=== PATIENT | male | born 1960 | race Two or more races ===

== ENCOUNTER 2017-09-01 04:36 | Emergency (ER) | payer MEDICAID ==
[~2017-09-01] VITALS: Ht 175.3 cm; Wt 57.9 kg
[~2017-09-01 04:36] MED LIST: HYDR-569 PO; NABU500T2 PO
[2017-09-01 04:47] VITALS: BP 138/85
[2017-09-01] MEDS ORDERED: ibuprofen tablet 400 MG TABLET PO ONE (05:00)
[2017-09-01] MEDS ORDERED: HYDROcodone/acetaminophen 10/325mg tab PO ONE (05:00)
[2017-09-01] MEDS ORDERED: IBUP-1984 PO (05:05)
[2017-09-01] MEDS ORDERED: HYDR-569 PO (05:05)
== END 2017-09-01 05:21 | disposition home or self-care (01) ==
LOC: ER 04:37
DX: M62.830 Muscle spasm of back (principal); G89.29 Other chronic pain; F12.10 Cannabis abuse, uncomplicated; F15.10 Other stimulant abuse, uncomplicated; Z59.0 Homelessness; Z79.899 Other long term (current) drug therapy
CPT/HCPCS: 99283

== ENCOUNTER 2018-04-25 12:12 | Inpatient (IN) | payer MEDICAID ==
[~2018-04-25] VITALS: Ht 177.8 cm; Wt 70.5 kg
[~2018-04-25 12:12] MED LIST changes: +HYDR-4383 PO; -HYDR-569 PO
[2018-04-25 13:12] LABS: BASOPHILS # (AUTO) 0.1 X10'3 (0-0.2); BASOPHILS % (AUTO) 0.4 % (0-1); EOSINOPHILS % (AUTO) 0.2 % (0-6); HEMATOCRIT 38.3 % (42.0-52.0); HEMOGLOBIN 12.9 g/dl (14.0-17.9); LYMPHOCYTES # (AUTO) 1.1 X10'3 (1.1-4.8); MEAN CORPUSCULAR HGB CONC 33.5 % (33.0-36.5); MEAN CORPUSCULAR VOLUME 89.5 FL (78-98); MEAN PLATELET VOLUME 7.5 FL (7.4-10.4); MONOCYTES # (AUTO) 0.9 X10'3 (0-0.9); MONOCYTES % (AUTO) 6.6 % (2-12); NEUTROPHILS # (AUTO) 12.1 X10'3 (1.8-7.7); NEUTROPHILS % (AUTO) 84.8 % (42-75); PLATELET COUNT 254 X10'3 (140-440); RED BLOOD COUNT 4.28 X10'6 (4.70-6.10); RED CELL DISTRIBUTION WIDTH 12.7 % (11.5-14.5); WHITE BLOOD COUNT 14.3 X10'3 (4.5-11.0)
[2018-04-25 13:31] LABS: ALANINE AMINOTRANSFERASE 19 U/L (12-78); ALBUMIN 3.4 G/DL (3.4-5.0); ALBUMIN/GLOBULIN RATIO 0.8 (1.1-1.5); ALKALINE PHOSPHATASE 81 IU/L (46-116); ANION GAP 7 (8-16); ASPARTATE AMINO TRANSFERASE 13 U/L (10-37); BILIRUBIN,TOTAL 0.7 MG/DL (0.1-1.0); BLOOD UREA NITROGEN 19 MG/DL (7-18); CHLORIDE 100 MMOL/L (99-107); CREATININE 1.19 MG/DL (0.60-1.10); GLUCOSE 132 MG/DL (70-104); MAGNESIUM 1.9 MG/DL (1.5-2.4); POTASSIUM 4.1 MMOL/L (3.5-5.1); SODIUM 136 MMOL/L (135-145); TOTAL CARBON DIOXIDE 28.6 MMOL/L (24-32); TOTAL PROTEIN 7.5 G/DL (6.4-8.2); eGFR 63 ML/MIN
[2018-04-25] MEDS ORDERED: piperacillin/tazo 3.375gm/50ml 50 ML IV ONE (13:45)
[2018-04-25] MEDS ORDERED: iohexol 300mg/ml 100ml inj. ONE (13:53)
[2018-04-25] MEDS ORDERED: LIDOcaine 1% 30ml preserv. free vial IJ ONE (15:35)
[2018-04-25] MEDS ORDERED: morphine 2 MG/ML inj. syringe IV PRN (17:20)
[2018-04-25] MEDS ORDERED: potassium Cl 20 mEq SR tablet PO PRN ×2 (17:20)
[2018-04-25] MEDS ORDERED: mag hydrox/Alum hydrox/simeth 30ml oral suspension PO PRN (17:20)
[2018-04-25] MEDS ORDERED: ondansetron/PF 4mg/2ml inj IV PRN (17:20)
[2018-04-25] MEDS ORDERED: magnesium hydroxide 30ml (MOM) UD suspension PO PRN (17:20)
[2018-04-25] MEDS ORDERED: acetaminophen 325mg tablet PO PRN (17:20)
[2018-04-25] MEDS ORDERED: magnesium 4gm in 100ml NS 100 ML IV PRN (17:20)
[2018-04-25] MEDS ORDERED: potassium Cl 40MEQ/NS 500ml 500 ML IV PRN ×2 (17:20)
[2018-04-25] MEDS ORDERED: ipratropium/albuterol 3ml nebule NEB PRN (17:20)
[2018-04-25] MEDS: morphine 2 MG/ML inj. syringe IV PRN (17:48)
[2018-04-25] MEDS: normal saline 1000ml 1,000 ML IV SCH (17:49)
[2018-04-25 20:30] VITALS: BP 117/59
[2018-04-25] MEDS: cefepime 2g/NS 100ml ADVANTAGE 100 ML IV SCH (20:31)
[2018-04-25 23:30] VITALS: BP 112/70
[2018-04-26] MEDS: normal saline 1000ml 1,000 ML IV SCH ×3 (03:18→23:02)
[2018-04-26] MEDS ORDERED: vancomycin/NS 1 GM ADD-VANTAGE 250 ML IV ONE (05:00)
[2018-04-26 05:17] LABS: BASOPHILS % (AUTO) 0.2 % (0-1); EOSINOPHILS # (AUTO) 0.3 X10'3 (0-0.9); EOSINOPHILS % (AUTO) 2.4 % (0-6); HEMATOCRIT 35.4 % (42.0-52.0); HEMOGLOBIN 12.1 g/dl (14.0-17.9); LYMPHOCYTES % (AUTO) 8.1 % (21-51); MEAN CORPUSCULAR HEMOGLOBIN 30.2 PG (27.0-31.0); MEAN CORPUSCULAR VOLUME 88.8 FL (78-98); MEAN PLATELET VOLUME 8.1 FL (7.4-10.4); MONOCYTES # (AUTO) 1.2 X10'3 (0-0.9); MONOCYTES % (AUTO) 9.1 % (2-12); NEUTROPHILS # (AUTO) 10.2 X10'3 (1.8-7.7); NEUTROPHILS % (AUTO) 80.2 % (42-75); PLATELET COUNT 244 X10'3 (140-440); RED BLOOD COUNT 3.99 X10'6 (4.70-6.10); RED CELL DISTRIBUTION WIDTH 12.4 % (11.5-14.5); WHITE BLOOD COUNT 12.7 X10'3 (4.5-11.0)
[2018-04-26 05:28] LABS: ALANINE AMINOTRANSFERASE 16 U/L (12-78); ALBUMIN 2.8 G/DL (3.4-5.0); ALBUMIN/GLOBULIN RATIO 0.7 (1.1-1.5); ALKALINE PHOSPHATASE 72 IU/L (46-116); ANION GAP 7 (8-16); ASPARTATE AMINO TRANSFERASE 13 U/L (10-37); BILIRUBIN,TOTAL 0.6 MG/DL (0.1-1.0); BLOOD UREA NITROGEN 17 MG/DL (7-18); BUN/CREATININE RATIO 16.2 (5.4-32.0); CALCIUM 8.7 MG/DL (8.5-10.1); CHLORIDE 100 MMOL/L (99-107); CREATININE 1.05 MG/DL (0.60-1.10); GLUCOSE 104 MG/DL (70-104); MAGNESIUM 1.7 MG/DL (1.5-2.4); POTASSIUM 4.1 MMOL/L (3.5-5.1); SODIUM 135 MMOL/L (135-145); TOTAL CARBON DIOXIDE 27.7 MMOL/L (24-32); TOTAL PROTEIN 6.7 G/DL (6.4-8.2); eGFR 73 ML/MIN
[2018-04-26 07:04] VITALS: BP 108/65
[2018-04-26] MEDS: enoxaparin 40mg/0.4ml syringe SQ SCH (07:25)
[2018-04-26] MEDS: vancomycin/NS 1 GM ADD-VANTAGE 250 ML IV SCH ×2 (07:25→20:32)
[2018-04-26] MEDS: morphine 2 MG/ML inj. syringe IV PRN ×4 (07:36→23:03)
[2018-04-26] MEDS: K and/or MAG REPLACEMENT MC SCH (08:00)
[2018-04-26] MEDS ORDERED: pneumococcal 23-VAL P-sac vacc 25 mcg/0.5ml vial IMVAC ONE (10:00)
[2018-04-26] MEDS ORDERED: FLU VACC QUAD 2018(5 YR UP)/PF 60 MCG/0.5 ML SYRINGE IM ONE (10:00)
[2018-04-26] MEDS: cefepime 2g/NS 100ml ADVANTAGE 100 ML IV SCH ×2 (11:00→19:49)
[2018-04-26 11:23] VITALS: BP 114/71
[2018-04-26 17:35] LABS: URINE AMPHETAMINE SCREEN POSITIVE (Neg); URINE BARBITUATE SCREEN NEGATIVE (Neg); URINE BENZODIAZEPINES SCREEN NEGATIVE (Neg); URINE CANNABINOID SCREEN POSITIVE (Neg); URINE COCAINE SCREEN NEGATIVE (Neg); URINE METHADONE SCREEN NEGATIVE (Neg); URINE OPIATE SCREEN POSITIVE (Neg); URINE PHENCYCLIDINE SCREEN NEGATIVE (Neg)
[2018-04-26] MEDS: lactobacillus rhamnosus 10,000 MMU CELLS/CAPSULE PO SCH (19:49)
[2018-04-26 20:00] VITALS: BP 119/68
[2018-04-27] VITALS: BP 109/57
[2018-04-27 05:48] LABS: BASOPHILS % (AUTO) 0.4 % (0-1); EOSINOPHILS % (AUTO) 1.8 % (0-6); HEMATOCRIT 33.4 % (42.0-52.0); HEMOGLOBIN 11.9 g/dl (14.0-17.9); LYMPHOCYTES % (AUTO) 13.9 % (21-51); MEAN CORPUSCULAR HEMOGLOBIN 31.5 PG (27.0-31.0); MEAN CORPUSCULAR HGB CONC 35.7 % (33.0-36.5); MEAN CORPUSCULAR VOLUME 88.2 FL (78-98); MEAN PLATELET VOLUME 8.2 FL (7.4-10.4); MONOCYTES % (AUTO) 9.5 % (2-12); NEUTROPHILS # (AUTO) 6.7 X10'3 (1.8-7.7); NEUTROPHILS % (AUTO) 74.4 % (42-75); PLATELET COUNT 242 X10'3 (140-440); RED BLOOD COUNT 3.79 X10'6 (4.70-6.10); RED CELL DISTRIBUTION WIDTH 11.6 % (11.5-14.5)
[2018-04-27 05:49] LABS: EOSINOPHILS # (AUTO) 0.2 X10'3 (0-0.9); LYMPHOCYTES # (AUTO) 1.2 X10'3 (1.1-4.8); MONOCYTES # (AUTO) 0.9 X10'3 (0-0.9)
[2018-04-27 05:58] LABS: ALANINE AMINOTRANSFERASE 15 U/L (12-78); ALBUMIN 2.5 G/DL (3.4-5.0); ALBUMIN/GLOBULIN RATIO 0.6 (1.1-1.5); ALKALINE PHOSPHATASE 73 IU/L (46-116); ANION GAP 8 (8-16); ASPARTATE AMINO TRANSFERASE 13 U/L (10-37); BILIRUBIN,TOTAL 0.3 MG/DL (0.1-1.0); BLOOD UREA NITROGEN 16 MG/DL (7-18); BUN/CREATININE RATIO 15.7 (5.4-32.0); CALCIUM 8.7 MG/DL (8.5-10.1); CHLORIDE 103 MMOL/L (99-107); CREATININE 1.02 MG/DL (0.60-1.10); GLUCOSE 102 MG/DL (70-104); MAGNESIUM 1.8 MG/DL (1.5-2.4); POTASSIUM 4.4 MMOL/L (3.5-5.1); SODIUM 140 MMOL/L (135-145); TOTAL CARBON DIOXIDE 28.9 MMOL/L (24-32); TOTAL PROTEIN 6.4 G/DL (6.4-8.2); eGFR 76 ML/MIN
[2018-04-27 07:00] VITALS: BP 111/71
[2018-04-27] MEDS: K and/or MAG REPLACEMENT MC SCH (08:00)
[2018-04-27] MEDS: cefepime 2g/NS 100ml ADVANTAGE 100 ML IV SCH (08:00)
[2018-04-27] MEDS: enoxaparin 40mg/0.4ml syringe SQ SCH (08:04)
[2018-04-27] MEDS: normal saline 1000ml 1,000 ML IV SCH ×3 (08:05→23:55)
[2018-04-27] MEDS: lactobacillus rhamnosus 10,000 MMU CELLS/CAPSULE PO SCH ×2 (08:09→19:58)
[2018-04-27] MEDS: vancomycin/NS 1 GM ADD-VANTAGE 250 ML IV SCH (08:10)
[2018-04-27 11:59] VITALS: BP 123/65
[2018-04-27] MEDS ORDERED: VANCOMYCIN LEVEL IV ONE (18:30)
[2018-04-27] MEDS: linezolid 600mg tablet PO SCH (19:58)
[2018-04-27] MEDS: ampicillin/sulbac 3gm/NS 100ml 100 ML IV SCH (19:58)
[2018-04-27 20:00] VITALS: BP 114/70
[2018-04-27] MEDS: morphine 2 MG/ML inj. syringe IV PRN (23:56)
[2018-04-28] VITALS: BP 132/66
[2018-04-28] MEDS: ampicillin/sulbac 3gm/NS 100ml 100 ML IV SCH ×4 (01:39→19:21)
[2018-04-28 05:29] LABS: BASOPHILS % (AUTO) 0.5 % (0-1); EOSINOPHILS # (AUTO) 0.3 X10'3 (0-0.9); EOSINOPHILS % (AUTO) 3.5 % (0-6); HEMATOCRIT 35.6 % (42.0-52.0); HEMOGLOBIN 12.1 g/dl (14.0-17.9); LYMPHOCYTES # (AUTO) 1.3 X10'3 (1.1-4.8); LYMPHOCYTES % (AUTO) 17.3 % (21-51); MEAN CORPUSCULAR VOLUME 88.4 FL (78-98); MONOCYTES # (AUTO) 0.8 X10'3 (0-0.9); NEUTROPHILS # (AUTO) 5.3 X10'3 (1.8-7.7); NEUTROPHILS % (AUTO) 68.7 % (42-75); PLATELET COUNT 280 X10'3 (140-440); RED BLOOD COUNT 4.03 X10'6 (4.70-6.10); RED CELL DISTRIBUTION WIDTH 12.5 % (11.5-14.5); WHITE BLOOD COUNT 7.7 X10'3 (4.5-11.0)
[2018-04-28 05:42] LABS: ALANINE AMINOTRANSFERASE 20 U/L (12-78); ALBUMIN 2.6 G/DL (3.4-5.0); ALBUMIN/GLOBULIN RATIO 0.7 (1.1-1.5); ALKALINE PHOSPHATASE 76 IU/L (46-116); ANION GAP 8 (8-16); ASPARTATE AMINO TRANSFERASE 16 U/L (10-37); BILIRUBIN,TOTAL 0.3 MG/DL (0.1-1.0); BLOOD UREA NITROGEN 13 MG/DL (7-18); BUN/CREATININE RATIO 13.5 (5.4-32.0); CALCIUM 8.8 MG/DL (8.5-10.1); CHLORIDE 103 MMOL/L (99-107); CREATININE 0.96 MG/DL (0.60-1.10); GLUCOSE 106 MG/DL (70-104); MAGNESIUM 1.9 MG/DL (1.5-2.4); POTASSIUM 4.1 MMOL/L (3.5-5.1); SODIUM 139 MMOL/L (135-145); TOTAL CARBON DIOXIDE 27.9 MMOL/L (24-32); TOTAL PROTEIN 6.6 G/DL (6.4-8.2); eGFR 81 ML/MIN
[2018-04-28 06:59] VITALS: BP 119/71
[2018-04-28] MEDS: K and/or MAG REPLACEMENT MC SCH (08:00)
[2018-04-28] MEDS: morphine 2 MG/ML inj. syringe IV PRN (08:18)
[2018-04-28] MEDS: enoxaparin 40mg/0.4ml syringe SQ SCH (08:23)
[2018-04-28] MEDS: linezolid 600mg tablet PO SCH ×2 (08:24→19:30)
[2018-04-28] MEDS: lactobacillus rhamnosus 10,000 MMU CELLS/CAPSULE PO SCH ×2 (08:25→19:21)
[2018-04-28 11:00] VITALS: BP 86/53
[2018-04-28 11:13] VITALS: BP 111/65
[2018-04-28] MEDS: normal saline 1000ml 1,000 ML IV SCH ×2 (15:18→22:04)
[2018-04-28 19:00] VITALS: BP 133/77
[2018-04-29] VITALS: BP 120/58
[2018-04-29] MEDS: ampicillin/sulbac 3gm/NS 100ml 100 ML IV SCH ×5 (01:22→19:26)
[2018-04-29 05:28] LABS: BASOPHILS % (AUTO) 0.7 % (0-1); EOSINOPHILS # (AUTO) 0.3 X10'3 (0-0.9); EOSINOPHILS % (AUTO) 5.1 % (0-6); HEMOGLOBIN 11.9 g/dl (14.0-17.9); LYMPHOCYTES # (AUTO) 1.5 X10'3 (1.1-4.8); LYMPHOCYTES % (AUTO) 27.4 % (21-51); MEAN CORPUSCULAR VOLUME 88.3 FL (78-98); MEAN PLATELET VOLUME 7.4 FL (7.4-10.4); MONOCYTES # (AUTO) 0.7 X10'3 (0-0.9); MONOCYTES % (AUTO) 11.9 % (2-12); NEUTROPHILS % (AUTO) 54.9 % (42-75); PLATELET COUNT 312 X10'3 (140-440); RED BLOOD COUNT 3.97 X10'6 (4.70-6.10); RED CELL DISTRIBUTION WIDTH 12.6 % (11.5-14.5); WHITE BLOOD COUNT 5.5 X10'3 (4.5-11.0)
[2018-04-29 05:33] LABS: ALANINE AMINOTRANSFERASE 21 U/L (12-78); ALBUMIN 2.5 G/DL (3.4-5.0); ALBUMIN/GLOBULIN RATIO 0.7 (1.1-1.5); ALKALINE PHOSPHATASE 75 IU/L (46-116); ANION GAP 9 (8-16); ASPARTATE AMINO TRANSFERASE 16 U/L (10-37); BILIRUBIN,TOTAL 0.1 MG/DL (0.1-1.0); BLOOD UREA NITROGEN 8 MG/DL (7-18); BUN/CREATININE RATIO 8.8 (5.4-32.0); CALCIUM 8.5 MG/DL (8.5-10.1); CHLORIDE 106 MMOL/L (99-107); CREATININE 0.91 MG/DL (0.60-1.10); GLUCOSE 132 MG/DL (70-104); MAGNESIUM 1.8 MG/DL (1.5-2.4); POTASSIUM 3.5 MMOL/L (3.5-5.1); SODIUM 142 MMOL/L (135-145); TOTAL CARBON DIOXIDE 27.3 MMOL/L (24-32); TOTAL PROTEIN 6.3 G/DL (6.4-8.2); eGFR 86 ML/MIN
[2018-04-29 07:13] VITALS: BP 110/78
[2018-04-29] MEDS: enoxaparin 40mg/0.4ml syringe SQ SCH (07:36)
[2018-04-29] MEDS: normal saline 1000ml 1,000 ML IV SCH ×2 (07:37→23:51)
[2018-04-29] MEDS: lactobacillus rhamnosus 10,000 MMU CELLS/CAPSULE PO SCH ×2 (07:37→19:26)
[2018-04-29] MEDS: linezolid 600mg tablet PO SCH ×2 (07:42→19:26)
[2018-04-29] MEDS: K and/or MAG REPLACEMENT MC SCH (07:52)
[2018-04-29] MEDS ORDERED: LORazepam 2 mg/ml vial IV PRN (09:30)
[2018-04-29] MEDS: OLANZapine 5mg rapidly disint. tablet PO SCH ×3 (09:49→19:26)
[2018-04-29 11:30] VITALS: BP 109/52
[2018-04-29] MEDS ORDERED: iohexol 300mg/ml 100ml inj. ONE (12:35)
[2018-04-29 17:20] LABS: INR 0.9 INR; PARTIAL THROMBOPLASTIN TIME 27 SECONDS (22-32); PROTHROMBIN TIME 9.4 SECONDS (9.0-12.0)
[2018-04-29 18:30] VITALS: BP 106/56
[2018-04-29] MEDS ORDERED: ringers solution, lacted 1,000 ML IV ONE (20:05)
[2018-04-30] VITALS: BP 104/51
[2018-04-30] MEDS: OLANZapine 5mg rapidly disint. tablet PO SCH ×4 (01:37→19:41)
[2018-04-30] MEDS: ampicillin/sulbac 3gm/NS 100ml 100 ML IV SCH ×4 (01:38→19:41)
[2018-04-30 03:28] VITALS: BP 118/60
[2018-04-30 05:16] LABS: BASOPHILS % (AUTO) 0.5 % (0-1); EOSINOPHILS # (AUTO) 0.3 X10'3 (0-0.9); EOSINOPHILS % (AUTO) 4.4 % (0-6); HEMATOCRIT 35.1 % (42.0-52.0); HEMOGLOBIN 11.9 g/dl (14.0-17.9); LYMPHOCYTES # (AUTO) 1.6 X10'3 (1.1-4.8); LYMPHOCYTES % (AUTO) 24.4 % (21-51); MEAN CORPUSCULAR HGB CONC 33.9 % (33.0-36.5); MEAN CORPUSCULAR VOLUME 88.4 FL (78-98); MEAN PLATELET VOLUME 7.2 FL (7.4-10.4); MONOCYTES # (AUTO) 0.7 X10'3 (0-0.9); MONOCYTES % (AUTO) 10.5 % (2-12); NEUTROPHILS # (AUTO) 3.9 X10'3 (1.8-7.7); NEUTROPHILS % (AUTO) 60.2 % (42-75); PLATELET COUNT 341 X10'3 (140-440); RED BLOOD COUNT 3.97 X10'6 (4.70-6.10); RED CELL DISTRIBUTION WIDTH 12.6 % (11.5-14.5); WHITE BLOOD COUNT 6.4 X10'3 (4.5-11.0)
[2018-04-30 05:36] LABS: ALANINE AMINOTRANSFERASE 24 U/L (12-78); ALBUMIN 2.5 G/DL (3.4-5.0); ALBUMIN/GLOBULIN RATIO 0.7 (1.1-1.5); ALKALINE PHOSPHATASE 64 IU/L (46-116); ANION GAP 6 (8-16); ASPARTATE AMINO TRANSFERASE 14 U/L (10-37); BILIRUBIN,TOTAL 0.1 MG/DL (0.1-1.0); BLOOD UREA NITROGEN 8 MG/DL (7-18); BUN/CREATININE RATIO 8.2 (5.4-32.0); CALCIUM 8.6 MG/DL (8.5-10.1); CHLORIDE 109 MMOL/L (99-107); CREATININE 0.97 MG/DL (0.60-1.10); GLUCOSE 100 MG/DL (70-104); MAGNESIUM 1.8 MG/DL (1.5-2.4); POTASSIUM 3.8 MMOL/L (3.5-5.1); SODIUM 145 MMOL/L (135-145); TOTAL CARBON DIOXIDE 30.1 MMOL/L (24-32); TOTAL PROTEIN 6.2 G/DL (6.4-8.2); eGFR 80 ML/MIN
[2018-04-30] MEDS ORDERED: famotidine 20mg tablet PO ONE (06:00)
[2018-04-30 07:00] VITALS: BP 118/60
[2018-04-30] MEDS: enoxaparin 40mg/0.4ml syringe SQ SCH (07:18)
[2018-04-30] MEDS: normal saline 1000ml 1,000 ML IV SCH ×3 (07:18→19:49)
[2018-04-30] MEDS: K and/or MAG REPLACEMENT MC SCH (07:18)
[2018-04-30] MEDS: linezolid 600mg tablet PO SCH ×2 (07:53→19:41)
[2018-04-30] MEDS: lactobacillus rhamnosus 10,000 MMU CELLS/CAPSULE PO SCH ×2 (07:53→19:41)
[2018-04-30] MEDS ORDERED: ringers solution, lacted 1,000 ML IV SCH (10:51)
[2018-04-30] MEDS ORDERED: fentaNYL/PF 50MCG/1 ML 2ML syringe IV PRN ×2 (10:55)
[2018-04-30] MEDS ORDERED: morphine 4 MG/ML inj SYRINge IV PRN ×2 (10:55)
[2018-04-30] MEDS ORDERED: ondansetron/PF 4mg/2ml inj IV PRN (10:55)
[2018-04-30] MEDS ORDERED: labetalol 20mg/4ml (5mg/ml) syringe IV PRN (10:55)
[2018-04-30] MEDS ORDERED: hydrALAZINE 20mg/ml inj. IV PRN (10:55)
[2018-04-30 12:00] VITALS: BP 116/63
[2018-04-30 12:10] VITALS: BP 132/88
[2018-04-30] MEDS ORDERED: LIDOcaine 1% 30ml preserv. free vial ONE (12:18)
[2018-04-30 18:00] VITALS: BP 121/69
[2018-05-01] VITALS: BP 111/67
[2018-05-01] MEDS: ampicillin/sulbac 3gm/NS 100ml 100 ML IV SCH ×4 (02:21→19:32)
[2018-05-01] MEDS: OLANZapine 5mg rapidly disint. tablet PO SCH ×4 (02:25→19:32)
[2018-05-01 07:23] VITALS: BP 119/68
[2018-05-01] MEDS: K and/or MAG REPLACEMENT MC SCH (08:00)
[2018-05-01] MEDS: normal saline 1000ml 1,000 ML IV SCH ×2 (08:18→17:02)
[2018-05-01] MEDS: linezolid 600mg tablet PO SCH ×2 (08:20→19:33)
[2018-05-01] MEDS: enoxaparin 40mg/0.4ml syringe SQ SCH (08:20)
[2018-05-01] MEDS: lactobacillus rhamnosus 10,000 MMU CELLS/CAPSULE PO SCH ×2 (08:20→19:32)
[2018-05-01 11:00] VITALS: BP 117/69
[2018-05-01 18:00] VITALS: BP 101/57
[2018-05-02] VITALS: BP 117/66
[2018-05-02] MEDS: OLANZapine 5mg rapidly disint. tablet PO SCH ×3 (02:05→14:40)
[2018-05-02] MEDS: ampicillin/sulbac 3gm/NS 100ml 100 ML IV SCH ×2 (02:05→08:05)
[2018-05-02] MEDS: normal saline 1000ml 1,000 ML IV SCH (05:54)
[2018-05-02 08:00] VITALS: BP 114/68
[2018-05-02] MEDS: K and/or MAG REPLACEMENT MC SCH (08:00)
[2018-05-02] MEDS: linezolid 600mg tablet PO SCH (08:06)
[2018-05-02] MEDS: lactobacillus rhamnosus 10,000 MMU CELLS/CAPSULE PO SCH (08:08)
[2018-05-02] MEDS: enoxaparin 40mg/0.4ml syringe SQ SCH (08:08)
[2018-05-02] MEDS ORDERED: sulfamethoxazole/trimethoprim DS (800/160mg) tablet PO SCH (09:07)
[2018-05-02 11:57] VITALS: BP 107/67
[2018-05-02] MEDS ORDERED: SULF1TAB49 PO (14:34)
[2018-05-02] MEDS ORDERED: AMOX-580 PO (14:34)
[2018-05-02] MEDS ORDERED: morphine 4 MG/ML inj SYRINge IV PRN ×2 (15:56)
[2018-05-02] MEDS ORDERED: amox tr/potassium clavulanate 875/125mg TAB PO SCH (17:30)
== END 2018-05-02 16:00 | disposition home or self-care (01) | DRG 364 ==
LOC: ER 12:13 → ED HOLD 17:18 → EDBEDREQ 20:06 → SUR 3N 20:15
PROVIDERS: ADMIT Family Medicine; ATTEND Family Medicine
PROC: 0J950ZZ Drainage of Left Neck Subcutaneous Tissue and Fascia, Open Approach (ICD-10-PCS; 2018-04-25)
PROC: BW2F1ZZ Computerized Tomography (CT Scan) of Neck using Low Osmolar Contrast (ICD-10-PCS; 2018-04-25)
PROC: 3E02340 Introduction of Influenza Vaccine into Muscle, Percutaneous Approach (ICD-10-PCS; 2018-04-26)
PROC: 3E0234Z Introduction of Serum, Toxoid and Vaccine into Muscle, Percutaneous Approach (ICD-10-PCS; 2018-04-26)
PROC: BW2F1ZZ Computerized Tomography (CT Scan) of Neck using Low Osmolar Contrast (ICD-10-PCS; 2018-04-29)
PROC: 0J950ZZ Drainage of Left Neck Subcutaneous Tissue and Fascia, Open Approach (ICD-10-PCS; principal; 2018-04-30)
DX: L02.11 Cutaneous abscess of neck (principal); N17.9 Acute kidney failure, unspecified; D64.9 Anemia, unspecified; F12.90 Cannabis use, unspecified, uncomplicated; F15.10 Other stimulant abuse, uncomplicated; F17.210 Nicotine dependence, cigarettes, uncomplicated; F29 Unspecified psychosis not due to a substance or known physiological condition; G89.29 Other chronic pain; B95.8 Unspecified staphylococcus as the cause of diseases classified elsewhere; L03.221 Cellulitis of neck; Z59.0 Homelessness
CPT/HCPCS: 10060; 36415; 70491; 71045; 80053; 80202; 80305; 83605; 83735; 84145; 85025; 85610; 85730; 87040; 87070; 87075; 90732; 93005; 94760; 96365; 99285; G0378; J0295; J0692; J1650; J2060; J2270; J2405; J2543; J3370; J3490; J7030; J7120; Q2037; Q9967

== ENCOUNTER 2020-05-02 10:46 | Emergency (ER) | payer MEDICAID ==
[~2020-05-02] VITALS: Ht 175.3 cm; Wt 84.1 kg
[~2020-05-02 10:46] MED LIST changes: +AMOX-580 PO; +NABU-134 PO; -NABU500T2 PO
[2020-05-02 11:02] VITALS: BP 140/74
== END 2020-05-02 12:01 | disposition home or self-care (01) ==
LOC: ER 10:47
DX: J06.9 Acute upper respiratory infection, unspecified (principal); J02.9 Acute pharyngitis, unspecified; R05 Cough; Z20.828 Contact with and (suspected) exposure to other viral communicable diseases; G89.29 Other chronic pain; F12.90 Cannabis use, unspecified, uncomplicated; F15.90 Other stimulant use, unspecified, uncomplicated; Z59.0 Homelessness; Z79.2 Long term (current) use of antibiotics; Z79.899 Other long term (current) drug therapy
CPT/HCPCS: 36415; 87635; 99283

== ENCOUNTER 2020-05-04 04:19 | Emergency (ER) | payer MEDICAID ==
[~2020-05-04] VITALS: Ht 175.3 cm; Wt 84.1 kg
[2020-05-04 04:25] VITALS: BP 133/79
== END 2020-05-04 07:03 | disposition left against medical advice (07) ==
LOC: ER 04:20
DX: J02.9 Acute pharyngitis, unspecified (principal); Z53.21 Procedure and treatment not carried out due to patient leaving prior to being seen by health care provider

== ENCOUNTER 2020-10-23 06:39 | Emergency (ER) | payer MEDICAID ==
[~2020-10-23] VITALS: Ht 175.3 cm; Wt 84.0 kg
[~2020-10-23 06:39] MED LIST changes: -NABU-134 PO; +NABU-139 PO
[2020-10-23 06:52] VITALS: BP 123/97
[2020-10-23] MEDS ORDERED: ondansetron 4mg rapidly disintigrating tab PO ONE (07:00)
[2020-10-23] MEDS ORDERED: acetaminophen 325mg tablet PO ONE (07:00)
[2020-10-23] MEDS ORDERED: sulfamethoxazole/trimethoprim DS (800/160mg) tablet PO ONE (07:00)
[2020-10-23] MEDS ORDERED: ketorolac trometh inj. 60 MG/2 ML VIAL IM ONE (07:00)
[2020-10-23] MEDS ORDERED: SULF1TAB49 PO (07:01)
[2020-10-23] MEDS ORDERED: ketorolac trometh. 30mg/ml inj. IM ONE (07:05)
== END 2020-10-23 07:20 | disposition home or self-care (01) ==
LOC: ER 06:40
DX: R59.1 Generalized enlarged lymph nodes (principal); R10.32 Left lower quadrant pain; G89.29 Other chronic pain; F12.90 Cannabis use, unspecified, uncomplicated; F15.90 Other stimulant use, unspecified, uncomplicated; Z59.0 Homelessness; Z79.2 Long term (current) use of antibiotics; Z79.899 Other long term (current) drug therapy
CPT/HCPCS: 96372; 99284; J1885

== ENCOUNTER 2021-02-17 21:41 | Emergency (ER) | payer MEDICAID | END 2021-02-17 23:48 | disposition left against medical advice (07) | LOC: ER 21:42 | DX: Z53.21 Procedure and treatment not carried out due to patient leaving prior to being seen by health care provider (principal) ==

== ENCOUNTER 2021-03-21 17:41 | Emergency (ER) | payer MEDICAID ==
[~2021-03-21] VITALS: Ht 175.3 cm; Wt 82.3 kg
[2021-03-21 17:51] VITALS: BP 123/82
== END 2021-03-21 18:21 | disposition left against medical advice (07) ==
LOC: ER 17:42
DX: Z20.822 Contact with and (suspected) exposure to COVID-19 (principal); R11.2 Nausea with vomiting, unspecified; R19.7 Diarrhea, unspecified; G89.29 Other chronic pain; R53.1 Weakness; R05.9 Cough, unspecified; R50.9 Fever, unspecified; F12.90 Cannabis use, unspecified, uncomplicated; F15.90 Other stimulant use, unspecified, uncomplicated; Z59.00 Homelessness unspecified; Z79.2 Long term (current) use of antibiotics; Z79.899 Other long term (current) drug therapy
CPT/HCPCS: 99282

== ENCOUNTER 2021-03-30 09:20 | Emergency (ER) | payer MEDICAID ==
[~2021-03-30] VITALS: Ht 170.2 cm; Wt 77.3 kg
[2021-03-30 09:45] VITALS: BP 130/79
[2021-03-30] MEDS ORDERED: TETanus/Pertussis (Acell)/Diphther VAC/PF (Tdap-Adult) 0.5ml syringe IMVAC ONE (09:45)
== END 2021-03-30 09:53 ==
LOC: ER 09:21
DX: S81.811A Laceration without foreign body, right lower leg, initial encounter (principal); G89.29 Other chronic pain; F12.90 Cannabis use, unspecified, uncomplicated; F15.90 Other stimulant use, unspecified, uncomplicated; Z59.00 Homelessness unspecified; Z79.2 Long term (current) use of antibiotics; Z79.899 Other long term (current) drug therapy; W22.8XXA Striking against or struck by other objects, initial encounter; Y93.89 Activity, other specified; Y92.89 Other specified places as the place of occurrence of the external cause; Y99.8 Other external cause status
CPT/HCPCS: 12041; 99284

== ENCOUNTER 2021-05-12 21:04 | Emergency (ER) | payer MEDICAID ==
[~2021-05-12] VITALS: Ht 175.3 cm; Wt 77.3 kg
[2021-05-12 21:08] VITALS: BP 143/75
--- NOTE | 2021-05-12 21:30 | NUR ---
Pt c/o weakness, fatique, and lower back pain.
[2021-05-12 21:46] LABS: EOSINOPHILS # (AUTO) 0.1 X10'3 (0-0.9); HEMOGLOBIN 13.1 g/dl (14.0-17.9)
[2021-05-12 21:48] LABS: BASOPHILS % (AUTO) 0.5 % (0-1); HEMATOCRIT 39.2 % (42.0-52.0); LYMPHOCYTES # (AUTO) 1.1 X10'3 (1.1-4.8); LYMPHOCYTES % (AUTO) 19.4 % (21-51); MEAN CORPUSCULAR HGB CONC 33.3 g/dL (33.0-36.5); MEAN CORPUSCULAR VOLUME 90.1 FL (78-98); MONOCYTES # (AUTO) 0.4 X10'3 (0-0.9); MONOCYTES % (AUTO) 7.9 % (2-12); NEUTROPHILS # (AUTO) 3.9 X10'3 (1.8-7.7); NEUTROPHILS % (AUTO) 70.2 % (42-75); PLATELET COUNT 298 X10'3 (140-440); RED BLOOD COUNT 4.35 X10'6 (4.70-6.10); RED CELL DISTRIBUTION WIDTH 13.4 % (11.5-14.5); WHITE BLOOD COUNT 5.5 X10'3 (4.5-11.0)
[2021-05-12] MEDS: cyclobenzaprine 10mg tablet PO ONE (21:55)
[2021-05-12 21:59] LABS: ALANINE AMINOTRANSFERASE 27 U/L (12-78); ALBUMIN 3.9 G/DL (3.4-5.0); ALBUMIN/GLOBULIN RATIO 1.1 (1.1-1.5); ALKALINE PHOSPHATASE 81 IU/L (46-116); ANION GAP 14 (8-16); ASPARTATE AMINO TRANSFERASE 30 U/L (10-37); BILIRUBIN,TOTAL 0.4 MG/DL (0.1-1.0); BLOOD UREA NITROGEN 22 MG/DL (7-18); BUN/CREATININE RATIO 21.4 (5.4-32.0); CALCIUM 9.1 MG/DL (8.5-10.1); CHLORIDE 103 MMOL/L (99-107); CREATININE 1.03 MG/DL (0.60-1.10); GLUCOSE 119 MG/DL (70-104); POTASSIUM 3.8 MMOL/L (3.5-5.1); SODIUM 143 MMOL/L (135-145); TOTAL CARBON DIOXIDE 25.6 MMOL/L (24-32); TOTAL PROTEIN 7.4 G/DL (6.4-8.2); eGFR 74 ML/MIN
[2021-05-12] MEDS: ketorolac trometh inj. 60 MG/2 ML VIAL IM ONE (21:59)
--- NOTE | 2021-05-12 22:07 | NUR ---
Pt is homeless and he is wearing shorts. Given sweatpants. He has a warm jacket.
[2021-05-12] MEDS ORDERED: ALBU8HFA PO (22:36)
[2021-05-12] MEDS ORDERED: BENZ-38 PO (22:36)
--- NOTE | 2021-05-12 22:55 | NUR ---
Pt given and understands d/c instructions. Pt is homeless. 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
--- NOTE | 2021-05-13 00:29 | NUR ---
Pt is not in the [place] area.
== END 2021-05-13 00:35 | disposition home or self-care (01) ==
LOC: ER 21:05
DX: U07.1 COVID-19 (principal); R42 Dizziness and giddiness; G89.29 Other chronic pain; F12.90 Cannabis use, unspecified, uncomplicated; F15.90 Other stimulant use, unspecified, uncomplicated; Z85.9 Personal history of malignant neoplasm, unspecified; Z59.00 Homelessness unspecified; Z79.899 Other long term (current) drug therapy
CPT/HCPCS: 36415; 71045; 80053; 83880; 84484; 85025; 87502; 87503; 87635; 93005; 96372; 99285; C9803; J1885

== ENCOUNTER 2021-06-11 03:24 | Emergency (ER) | payer MEDICAID ==
[~2021-06-11] VITALS: Ht 175.3 cm; Wt 79.5 kg
[~2021-06-11 03:24] MED LIST changes: +ALBU8HFA PO
[2021-06-11] MEDS ORDERED: acetaminophen 325mg tablet PO ONE (03:50)
[2021-06-11 04:05] VITALS: BP 130/78
== END 2021-06-11 04:08 | disposition home or self-care (01) ==
LOC: ER 03:25
DX: M54.50 Low back pain, unspecified (principal); M25.561 Pain in right knee; G89.29 Other chronic pain; F12.90 Cannabis use, unspecified, uncomplicated; F15.90 Other stimulant use, unspecified, uncomplicated; Z59.00 Homelessness unspecified; Z79.2 Long term (current) use of antibiotics; Z79.899 Other long term (current) drug therapy
CPT/HCPCS: 99282

== ENCOUNTER 2022-05-04 02:06 | Emergency (ER) | payer MEDICAID ==
[~2022-05-04] VITALS: Ht 175.3 cm; Wt 84.1 kg
[~2022-05-04 02:06] MED LIST changes: -ALBU8HFA PO
[2022-05-04 02:12] VITALS: BP 155/96
== END 2022-05-04 05:58 | disposition left against medical advice (07) ==
LOC: ER 02:08
DX: M54.59 Other low back pain (principal); Z53.21 Procedure and treatment not carried out due to patient leaving prior to being seen by health care provider

== ENCOUNTER 2022-06-17 20:28 | Emergency (ER) | payer MEDICAID ==
[~2022-06-17] VITALS: Ht 175.3 cm; Wt 73.0 kg
[2022-06-17 20:48] VITALS: BP 130/55
== END 2022-06-17 23:35 | disposition left against medical advice (07) ==
LOC: ER 20:28
DX: M79.673 Pain in unspecified foot (principal); Z53.21 Procedure and treatment not carried out due to patient leaving prior to being seen by health care provider

== ENCOUNTER 2022-07-14 07:07 | Emergency (ER) | payer MEDICAID ==
[~2022-07-14] VITALS: Ht 175.3 cm; Wt 84.1 kg
[2022-07-14 07:10] VITALS: BP 175/99
== END 2022-07-14 09:11 | disposition left against medical advice (07) ==
LOC: ER 07:08
DX: M79.672 Pain in left foot (principal); Z53.21 Procedure and treatment not carried out due to patient leaving prior to being seen by health care provider

== ENCOUNTER 2022-07-30 01:37 | Emergency (ER) | payer MEDICAID ==
[~2022-07-30] VITALS: Ht 175.3 cm; Wt 68.1 kg
[2022-07-30 01:53] VITALS: BP 146/89
== END 2022-07-30 06:47 | disposition left against medical advice (07) ==
LOC: ER 01:37
DX: M79.602 Pain in left arm (principal); Z53.21 Procedure and treatment not carried out due to patient leaving prior to being seen by health care provider
CPT/HCPCS: 73630; 99281

== ENCOUNTER 2022-08-07 01:51 | Emergency (ER) | payer MEDICAID ==
[~2022-08-07] VITALS: Ht 175.3 cm; Wt 84.1 kg
[2022-08-07 02:05] VITALS: BP 149/94
[2022-08-07] MEDS ORDERED: ibuprofen tablet 400 MG TABLET PO ONE (05:15)
[2022-08-07] MEDS ORDERED: acetaminophen 325mg tablet PO ONE (05:15)
== END 2022-08-07 05:41 | disposition home or self-care (01) ==
LOC: ER 01:52
DX: L84 Corns and callosities (principal); F12.10 Cannabis abuse, uncomplicated; F15.10 Other stimulant abuse, uncomplicated; G89.29 Other chronic pain; M54.9 Dorsalgia, unspecified; Z59.00 Homelessness unspecified; Z79.899 Other long term (current) drug therapy; Z79.1 Long term (current) use of non-steroidal anti-inflammatories (NSAID); Z79.2 Long term (current) use of antibiotics
CPT/HCPCS: 99283

== ENCOUNTER 2022-08-22 03:52 | Emergency (ER) | payer MEDICAID ==
[~2022-08-22] VITALS: Ht 175.3 cm; Wt 77.3 kg
[2022-08-22 04:48] VITALS: BP 142/85
== END 2022-08-22 04:10 | disposition left against medical advice (07) ==
LOC: ER 03:53
DX: R10.9 Unspecified abdominal pain (principal); Z53.21 Procedure and treatment not carried out due to patient leaving prior to being seen by health care provider
CPT/HCPCS: 99281